=== PATIENT | female | born 1970 | race Caucasian/White ===

== ENCOUNTER 2019-11-25 16:56 | Inpatient (IN) ==
[2019-11-25] MEDS ORDERED: 0.9 % Sodium Chloride 1,000 ML IVC ONE (18:40)
[2019-11-25 19:35] LABS: Basophils % 0.4 %; Eosinophils # 0.4 K/mcL (0.0-0.6); Eosinophils % 6.4 %; Hematocrit 37.4 % (35.3-44.9); Hemoglobin 12.1 g/dL (11.5-15.4); Immature Granulocytes % 0.3 % (0-4); Lymphocytes # 1.5 K/mcL (0.6-4.6); Lymphocytes % 22.9 %; Mean Corpuscular HGB Conc 32.4 g/dL (31.6-35.5); Mean Corpuscular Hemoglobin 30.7 pg (28.0-33.3); Mean Corpuscular Volume 94.9 fL (83.0-100.0); Mean Platelet Volume 9.7 fL (9.4-12.4); Monocytes # 0.3 K/mcL (0.0-1.3); Monocytes % 4.6 %; Neutrophils # 4.4 K/mcL (1.6-8.9); Platelet Count 247 K/mcL (140-400); Red Blood Count 3.94 M/mcL (3.82-4.97); Red Cell Distribution Width 13.2 % (11.5-14.5); Segmented Neutrophils % 65.4 %; White Blood Count 6.7 K/mcL (4.3-11.1)
[2019-11-25] MEDS ORDERED: cefTRIAXone 2,000 MG in 0.9 % Sodium Chloride Mini Bag 100 ML IVPB ONE (19:46)
[2019-11-25] MEDS ORDERED: Vancomycin 1,750 MG/517.5 ML IV.SOLN IVPB ONE (19:47)
[2019-11-25] MEDS ORDERED: cefTRIAXone 2,000 MG in Water for inj. (sterile) 20 ML IVP ONE (20:05)
[2019-11-25 20:42] LABS: Alanine Aminotransferase 13 Units/L (7-52); Albumin 3.8 g/dL (3.5-5.7); Albumin/Globulin Ratio 1.3 (1.1-2.2); Alkaline Phosphatase 48 Units/L (34-104); Aspartate Amino Transferase 17 Units/L (13-39); BUN/Creatinine Ratio 20 (6-26); Bilirubin,Total 0.4 mg/dL (0.3-1.0); Blood Urea Nitrogen 14 mg/dL (6-20); Calcium 8.7 mg/dL (8.6-10.3); Carbon Dioxide 28 mEq/L (23-29); Chloride 104 mEq/L (98-107); Glucose 102 mg/dL (70-105); Osmolality,Calculated 287 (280-300); Sodium 138 mEq/L (136-145); Total Protein 6.8 g/dL (6.4-8.9); eGFR For African Americans > 60 (> 60); eGFR For Non-African Americans > 60 (> 60)
[2019-11-25] MEDS ORDERED: Naloxone 0.4 MG/ML INJ IVP PRN (22:12)
[2019-11-25] MEDS ORDERED: Mag Hydrox/Al Hydrox/Simeth 30 ML UDC PO PRN (22:12)
[2019-11-25] MEDS ORDERED: Ibuprofen 600 MG TABLET PO PRN (22:12)
[2019-11-25] MEDS ORDERED: *HR* Promethazine 25 MG/ML VIAL IVP PRN (22:12)
[2019-11-25] MEDS ORDERED: traZODone 50 MG TABLET PO PRN (22:15)
[2019-11-25] MEDS ORDERED: *HR* LORazepam 0.5 MG TABLET PO ONE (22:15)
[2019-11-25] MEDS ORDERED: 0.9 % Sodium Chloride 1,000 ML IVC SCH (22:15)
[2019-11-25 22:26] LABS: C-Reactive Protein 23 mg/L (Less than 10)
[2019-11-26] MEDS: Piperacillin/Tazobactam 3.375 GM in 0.9 % Sodium Chloride Mini Bag 100 ML IVPB SCH ×3 (00:42→15:19)
[2019-11-26] MEDS: *HR* Heparin 5,000 UNIT/ML VIAL SQ SCH ×3 (00:43→22:08)
[2019-11-26 07:04] LABS: Basophils % 0.7 %; Eosinophils # 0.4 K/mcL (0.0-0.6); Eosinophils % 7.2 %; Hemoglobin 11.9 g/dL (11.5-15.4); Immature Granulocytes % 0.2 % (0-4); Lymphocytes # 1.6 K/mcL (0.6-4.6); Mean Corpuscular HGB Conc 32.2 g/dL (31.6-35.5); Mean Corpuscular Hemoglobin 30.7 pg (28.0-33.3); Mean Corpuscular Volume 95.4 fL (83.0-100.0); Mean Platelet Volume 9.2 fL (9.4-12.4); Monocytes # 0.3 K/mcL (0.0-1.3); Monocytes % 6.1 %; Neutrophils # 3.1 K/mcL (1.6-8.9); Platelet Count 206 K/mcL (140-400); Red Blood Count 3.88 M/mcL (3.82-4.97); Red Cell Distribution Width 13.2 % (11.5-14.5); Segmented Neutrophils % 56.8 %; White Blood Count 5.4 K/mcL (4.3-11.1)
[2019-11-26 07:25] LABS: BUN/Creatinine Ratio 20 (6-26); Blood Urea Nitrogen 12 mg/dL (6-20); Calcium 8.5 mg/dL (8.6-10.3); Carbon Dioxide 28 mEq/L (23-29); Chloride 108 mEq/L (98-107); Glucose 98 mg/dL (70-105); Magnesium 1.8 mg/dL (1.6-2.6); Osmolality,Calculated 290 (280-300); Potassium 3.6 mEq/L (3.5-5.1); Sodium 140 mEq/L (136-145); eGFR For African Americans > 60 (> 60); eGFR For Non-African Americans > 60 (> 60)
[2019-11-26] MEDS: Nicotine 2 MG GUM BC SCH ×6 (07:40→22:06)
[2019-11-26] MEDS: Gabapentin 400 MG CAPSULE PO SCH ×3 (07:43→22:06)
[2019-11-26] MEDS: Cyanocobalamin (B-12) 1,000 MCG TABLET PO SCH (07:43)
[2019-11-26] MEDS ORDERED: (Buprenorphine Hcl/Naloxone Hcl [Buprenorphin-Naloxon SL SCH (09:00)
[2019-11-26] MEDS ORDERED: Vancomycin 1,750 MG in 0.9 % Sodium Chloride 250 ML IVPB SCH (09:00)
[2019-11-26] MEDS: Vancomycin 1,750 MG/517.5 ML IV.SOLN IVPB SCH ×2 (09:41→22:06)
[2019-11-26] MEDS ORDERED: Ketorolac 30 MG/ML VIAL IVP ONE (11:32)
[2019-11-26] MEDS: BUPRENORPHINE HCL SL SCH ×2 (12:33→22:07)
[2019-11-26] MEDS: NALOXONE HCL SL SCH ×2 (12:33→22:07)
[2019-11-26] MEDS: Ketorolac 30 MG/ML VIAL IVP SCH (18:41)
[2019-11-27] MEDS: Ketorolac 30 MG/ML VIAL IVP SCH ×3 (00:47→12:19)
[2019-11-27] MEDS: Piperacillin/Tazobactam 3.375 GM in 0.9 % Sodium Chloride Mini Bag 100 ML IVPB SCH ×2 (00:47→12:14)
[2019-11-27 05:31] LABS: Basophils % 0.5 %; Eosinophils # 0.3 K/mcL (0.0-0.6); Eosinophils % 4.8 %; Hematocrit 32.2 % (35.3-44.9); Hemoglobin 10.2 g/dL (11.5-15.4); Immature Granulocytes % 0.2 % (0-4); Lymphocytes # 1.9 K/mcL (0.6-4.6); Lymphocytes % 33.2 %; Mean Corpuscular HGB Conc 31.7 g/dL (31.6-35.5); Mean Corpuscular Hemoglobin 30.9 pg (28.0-33.3); Mean Corpuscular Volume 97.6 fL (83.0-100.0); Mean Platelet Volume 9.9 fL (9.4-12.4); Monocytes # 0.4 K/mcL (0.0-1.3); Monocytes % 6.4 %; Neutrophils # 3.1 K/mcL (1.6-8.9); Platelet Count 203 K/mcL (140-400); Red Cell Distribution Width 13.3 % (11.5-14.5); Segmented Neutrophils % 54.9 %; White Blood Count 5.6 K/mcL (4.3-11.1)
[2019-11-27 05:45] LABS: BUN/Creatinine Ratio 24 (6-26); Blood Urea Nitrogen 16 mg/dL (6-20); Calcium 8.1 mg/dL (8.6-10.3); Carbon Dioxide 27 mEq/L (23-29); Chloride 109 mEq/L (98-107); Glucose 123 mg/dL (70-105); Osmolality,Calculated 291 (280-300); Potassium 3.5 mEq/L (3.5-5.1); Sodium 139 mEq/L (136-145); eGFR For African Americans > 60 (> 60); eGFR For Non-African Americans > 60 (> 60)
[2019-11-27] MEDS: Nicotine 2 MG GUM BC SCH ×5 (07:32→21:07)
[2019-11-27] MEDS: Cyanocobalamin (B-12) 1,000 MCG TABLET PO SCH ×2 (10:03→11:04)
[2019-11-27] MEDS: Gabapentin 400 MG CAPSULE PO SCH ×3 (10:03→21:07)
[2019-11-27] MEDS ORDERED: Vancomycin 1,750 MG/517.5 ML IV.SOLN IVPB SCH (12:00)
[2019-11-27] MEDS: *HR* Heparin 5,000 UNIT/ML VIAL SQ SCH (12:15)
[2019-11-27] MEDS: NALOXONE HCL SL SCH ×2 (12:20→21:07)
[2019-11-27] MEDS: BUPRENORPHINE HCL SL SCH ×2 (12:20→21:07)
[2019-11-27] MEDS ORDERED: *HR* LORazepam 0.5 MG TABLET PO PRN (13:08)
[2019-11-27] MEDS ORDERED: *HR* Heparin 5,000 UNIT/ML VIAL IVP PRN ×2 (15:01)
[2019-11-27] MEDS ORDERED: *HR* Heparin 5,000 UNIT/ML VIAL IVP ONE (15:01)
[2019-11-27 16:12] LABS: Hematocrit 36.4 % (35.3-44.9); Mean Corpuscular HGB Conc 32.4 g/dL (31.6-35.5); Mean Corpuscular Hemoglobin 30.5 pg (28.0-33.3); Mean Corpuscular Volume 94.1 fL (83.0-100.0); Mean Platelet Volume 10.1 fL (9.4-12.4); Platelet Count 253 K/mcL (140-400); Red Blood Count 3.87 M/mcL (3.82-4.97); Red Cell Distribution Width 13.5 % (11.5-14.5)
[2019-11-27 16:18] LABS: White Blood Count 8.5 K/mcL (4.3-11.1)
[2019-11-27 16:19] LABS: Hemoglobin 11.8 g/dL (11.5-15.4)
[2019-11-27 17:25] LABS: Heparin anti-factor XA UFH < 0.04 IU/mL (0.30-0.70); Prothrombin Time 11.4 Seconds (9.4-12.1)
[2019-11-27] MEDS: Heparin 25,000 UNIT/250 ML D5W 25,000 UNIT/250 ML IV.SOLN IVC SCH (17:26)
[2019-11-27] MEDS: Vancomycin 1,750 MG/517.5 ML IV.SOLN IVPB SCH (19:13)
[2019-11-28 01:48] LABS: Basophils % 0.5 %; Eosinophils # 0.4 K/mcL (0.0-0.6); Eosinophils % 5.8 %; Immature Granulocytes % 0.1 % (0-4); Lymphocytes # 2.5 K/mcL (0.6-4.6); Lymphocytes % 33.7 %; Mean Corpuscular HGB Conc 31.3 g/dL (31.6-35.5); Mean Corpuscular Hemoglobin 29.9 pg (28.0-33.3); Mean Corpuscular Volume 95.5 fL (83.0-100.0); Mean Platelet Volume 9.5 fL (9.4-12.4); Monocytes # 0.4 K/mcL (0.0-1.3); Monocytes % 4.7 %; Neutrophils # 4.1 K/mcL (1.6-8.9); Platelet Count 226 K/mcL (140-400); Red Blood Count 3.35 M/mcL (3.82-4.97); Red Cell Distribution Width 13.3 % (11.5-14.5); Segmented Neutrophils % 55.2 %; White Blood Count 7.5 K/mcL (4.3-11.1)
[2019-11-28 02:05] LABS: Alanine Aminotransferase 14 Units/L (7-52); Albumin 3.5 g/dL (3.5-5.7); Albumin/Globulin Ratio 1.4 (1.1-2.2); Alkaline Phosphatase 42 Units/L (34-104); Aspartate Amino Transferase 13 Units/L (13-39); BUN/Creatinine Ratio 28 (6-26); Bilirubin,Total 0.2 mg/dL (0.3-1.0); Blood Urea Nitrogen 18 mg/dL (6-20); Calcium 8.1 mg/dL (8.6-10.3); Carbon Dioxide 27 mEq/L (23-29); Chloride 108 mEq/L (98-107); Globulin 2.5 g/dL (2.4-3.5); Glucose 107 mg/dL (70-105); Osmolality,Calculated 290 (280-300); Potassium 3.7 mEq/L (3.5-5.1); Sodium 139 mEq/L (136-145); eGFR For African Americans > 60 (> 60); eGFR For Non-African Americans > 60 (> 60)
[2019-11-28] MEDS: Nicotine 2 MG GUM BC SCH ×5 (05:34→21:03)
[2019-11-28] MEDS ORDERED: Vancomycin 1,000 MG, 0.9 % Sodium Chloride 1,000 ML IR ONE ×2 (06:00→15:16)
[2019-11-28] MEDS: Cyanocobalamin (B-12) 1,000 MCG TABLET PO SCH (07:35)
[2019-11-28] MEDS: Gabapentin 400 MG CAPSULE PO SCH ×3 (07:40→21:03)
[2019-11-28] MEDS: Heparin 25,000 UNIT/250 ML D5W 25,000 UNIT/250 ML IV.SOLN IVC SCH ×3 (07:45→22:55)
[2019-11-28] MEDS: BUPRENORPHINE HCL SL SCH ×2 (12:13→21:58)
[2019-11-28] MEDS: NALOXONE HCL SL SCH ×2 (12:13→21:58)
[2019-11-28] MEDS ORDERED: Ondansetron 4 MG/2 ML VIAL ONE (12:47)
[2019-11-28] MEDS ORDERED: *HR* FentaNYL (PF) 100 MCG/2 ML VIAL ONE ×2 (12:47→14:46)
[2019-11-28] MEDS ORDERED: Dexamethasone 4 MG/ML VIAL ONE (12:47)
[2019-11-28] MEDS ORDERED: *HR* Succinylcholine 200 MG/10 ML VIAL IVP ONE (12:47)
[2019-11-28] MEDS ORDERED: *HR* Propofol 200 MG/20 ML VIAL IVP ONE (12:47)
[2019-11-28] MEDS ORDERED: Lidocaine -MPF 2% 2 ML VIAL ONE (12:47)
[2019-11-28] MEDS ORDERED: Lidocaine 1% 20 ML MDV ONE (13:41)
[2019-11-28] MEDS ORDERED: Bupivacaine/EPI 1:200k 0.25%PF 30 ML VIAL ONE (13:41)
[2019-11-28] MEDS ORDERED: Mag Hydrox/Al Hydrox/Simeth 30 ML UDC PO PRN (15:16)
[2019-11-28] MEDS ORDERED: Naloxone 0.4 MG/ML INJ IVP PRN (15:16)
[2019-11-28] MEDS ORDERED: *HR* Heparin 5,000 UNIT/ML VIAL IVP PRN ×2 (15:16)
[2019-11-28] MEDS ORDERED: *HR* Promethazine 25 MG/ML VIAL IVP PRN (15:16)
[2019-11-28] MEDS ORDERED: Ibuprofen 600 MG TABLET PO PRN (15:16)
[2019-11-28] MEDS: hydrOXYzine pamoate 25 MG CAPSULE PO PRN (15:31)
[2019-11-28] MEDS ORDERED: Patient Taking Own Medication 1 EACH PO SCH (21:00)
[2019-11-28] MEDS ORDERED: BUPRENORPHINE HCL SL SCH (21:00)
[2019-11-28] MEDS ORDERED: NALOXONE HCL SL SCH (21:00)
[2019-11-28] MEDS: traZODone 50 MG TABLET PO PRN (21:58)
[2019-11-29 03:46] LABS: Basophils % 0.6 %; Eosinophils # 0.4 K/mcL (0.0-0.6); Eosinophils % 6.5 %; Hematocrit 31.4 % (35.3-44.9); Hemoglobin 10.3 g/dL (11.5-15.4); Immature Granulocytes % 0.3 % (0-4); Lymphocytes # 2.3 K/mcL (0.6-4.6); Lymphocytes % 34.1 %; Mean Corpuscular HGB Conc 32.8 g/dL (31.6-35.5); Mean Corpuscular Hemoglobin 31.8 pg (28.0-33.3); Mean Corpuscular Volume 96.9 fL (83.0-100.0); Mean Platelet Volume 9.4 fL (9.4-12.4); Monocytes # 0.4 K/mcL (0.0-1.3); Monocytes % 5.5 %; Neutrophils # 3.6 K/mcL (1.6-8.9); Platelet Count 203 K/mcL (140-400); Red Blood Count 3.24 M/mcL (3.82-4.97); Red Cell Distribution Width 13.5 % (11.5-14.5); White Blood Count 6.8 K/mcL (4.3-11.1)
[2019-11-29 04:07] LABS: BUN/Creatinine Ratio 22 (6-26); Blood Urea Nitrogen 15 mg/dL (6-20); Carbon Dioxide 28 mEq/L (23-29); Chloride 109 mEq/L (98-107); Glucose 114 mg/dL (70-105); Osmolality,Calculated 296 (280-300); Potassium 3.5 mEq/L (3.5-5.1); Sodium 142 mEq/L (136-145); eGFR For African Americans > 60 (> 60); eGFR For Non-African Americans > 60 (> 60)
[2019-11-29] MEDS: Nicotine 2 MG GUM BC SCH ×6 (05:15→21:16)
[2019-11-29] MEDS: Gabapentin 400 MG CAPSULE PO SCH ×3 (10:10→21:38)
[2019-11-29] MEDS: BUPRENORPHINE HCL SL SCH ×2 (10:11→21:38)
[2019-11-29] MEDS: hydrOXYzine pamoate 25 MG CAPSULE PO PRN (10:11)
[2019-11-29] MEDS: NALOXONE HCL SL SCH ×2 (10:11→21:38)
[2019-11-29] MEDS: Cyanocobalamin (B-12) 1,000 MCG TABLET PO SCH (10:12)
[2019-11-29] MEDS ORDERED: Vancomycin 1,750 MG in 0.9 % Sodium Chloride 250 ML IVPB SCH (13:00)
[2019-11-29] MEDS: *HR* Enoxaparin 120 MG/0.8 ML SYRINGE SQ SCH (13:48)
[2019-11-29] MEDS: *HR* LORazepam 0.5 MG TABLET PO PRN (13:49)
[2019-11-29] MEDS: Vancomycin 1,750 MG/517.5 ML IV.SOLN IVPB SCH (13:57)
[2019-11-29] MEDS ORDERED: Anticoagulation Consult 1 Each MC ONE (17:13)
[2019-11-29] MEDS ORDERED: *HR* Warfarin 5 MG TABLET PO ONE (18:00)
[2019-11-29] MEDS ORDERED: Warfarin perPT PO PRN (18:00)
[2019-11-29] MEDS: traZODone 50 MG TABLET PO PRN (21:38)
[2019-11-30] MEDS: Vancomycin 1,750 MG/517.5 ML IV.SOLN IVPB SCH ×2 (00:19→14:02)
[2019-11-30 03:46] LABS: Basophils % 0.3 %; Eosinophils # 0.4 K/mcL (0.0-0.6); Eosinophils % 6.1 %; Hematocrit 31.3 % (35.3-44.9); Immature Granulocytes % 0.2 % (0-4); Lymphocytes # 1.9 K/mcL (0.6-4.6); Mean Corpuscular HGB Conc 31.9 g/dL (31.6-35.5); Mean Corpuscular Hemoglobin 30.5 pg (28.0-33.3); Mean Corpuscular Volume 95.4 fL (83.0-100.0); Mean Platelet Volume 9.3 fL (9.4-12.4); Monocytes # 0.4 K/mcL (0.0-1.3); Monocytes % 6.1 %; Neutrophils # 3.3 K/mcL (1.6-8.9); Platelet Count 196 K/mcL (140-400); Red Blood Count 3.28 M/mcL (3.82-4.97); Red Cell Distribution Width 13.3 % (11.5-14.5); Segmented Neutrophils % 55.3 %; White Blood Count 5.9 K/mcL (4.3-11.1)
[2019-11-30 03:50] LABS: INR 1.2; Prothrombin Time 13.5 Seconds (9.4-12.1)
[2019-11-30 04:06] LABS: BUN/Creatinine Ratio 24 (6-26); Blood Urea Nitrogen 15 mg/dL (6-20); Carbon Dioxide 27 mEq/L (23-29); Chloride 108 mEq/L (98-107); Glucose 104 mg/dL (70-105); Osmolality,Calculated 289 (280-300); Potassium 3.5 mEq/L (3.5-5.1); Sodium 139 mEq/L (136-145); eGFR For African Americans > 60 (> 60); eGFR For Non-African Americans > 60 (> 60)
[2019-11-30] MEDS: *HR* Enoxaparin 120 MG/0.8 ML SYRINGE SQ SCH ×2 (05:20→17:26)
[2019-11-30] MEDS: Nicotine 2 MG GUM BC SCH ×7 (05:21→20:37)
[2019-11-30] MEDS: Gabapentin 400 MG CAPSULE PO SCH ×4 (08:02→20:36)
[2019-11-30] MEDS: BUPRENORPHINE HCL SL SCH ×2 (09:27→20:36)
[2019-11-30] MEDS: NALOXONE HCL SL SCH ×2 (09:27→20:36)
[2019-11-30] MEDS: Cyanocobalamin (B-12) 1,000 MCG TABLET PO SCH (09:29)
[2019-11-30] MEDS ORDERED: *HR* Warfarin 5 MG TABLET PO ONE (18:00)
[2019-11-30] MEDS: traZODone 50 MG TABLET PO PRN (20:36)
[2019-12-01 00:27] LABS: INR 1.2
[2019-12-01 00:42] LABS: BUN/Creatinine Ratio 25 (6-26); Blood Urea Nitrogen 19 mg/dL (6-20); Carbon Dioxide 27 mEq/L (23-29); Chloride 107 mEq/L (98-107); Glucose 102 mg/dL (70-105); Osmolality,Calculated 290 (280-300); Sodium 139 mEq/L (136-145); eGFR For African Americans > 60 (> 60); eGFR For Non-African Americans > 60 (> 60)
[2019-12-01 00:45] LABS: Basophils % 0.5 %; Eosinophils # 0.3 K/mcL (0.0-0.6); Eosinophils % 4.8 %; Hematocrit 29.7 % (35.3-44.9); Hemoglobin 9.7 g/dL (11.5-15.4); Immature Granulocytes % 0.2 % (0-4); Lymphocytes # 1.9 K/mcL (0.6-4.6); Mean Corpuscular HGB Conc 32.7 g/dL (31.6-35.5); Mean Corpuscular Hemoglobin 31.5 pg (28.0-33.3); Mean Corpuscular Volume 96.4 fL (83.0-100.0); Mean Platelet Volume 9.4 fL (9.4-12.4); Monocytes # 0.4 K/mcL (0.0-1.3); Monocytes % 5.9 %; Neutrophils # 3.4 K/mcL (1.6-8.9); Platelet Count 198 K/mcL (140-400); Red Blood Count 3.08 M/mcL (3.82-4.97); Red Cell Distribution Width 13.3 % (11.5-14.5); Segmented Neutrophils % 56.6 %; White Blood Count 6.1 K/mcL (4.3-11.1)
[2019-12-01] MEDS: Vancomycin 1,750 MG/517.5 ML IV.SOLN IVPB SCH ×2 (01:00→14:42)
[2019-12-01] MEDS: Nicotine 2 MG GUM BC SCH ×5 (05:06→22:11)
[2019-12-01] MEDS: *HR* Enoxaparin 120 MG/0.8 ML SYRINGE SQ SCH ×2 (05:06→16:52)
[2019-12-01] MEDS: NALOXONE HCL SL SCH ×2 (10:18→21:00)
[2019-12-01] MEDS: BUPRENORPHINE HCL SL SCH ×2 (10:18→21:00)
[2019-12-01] MEDS: Gabapentin 400 MG CAPSULE PO SCH ×3 (10:19→20:34)
[2019-12-01] MEDS: Cyanocobalamin (B-12) 1,000 MCG TABLET PO SCH (10:20)
[2019-12-01] MEDS ORDERED: *HR* Warfarin 7.5 MG TABLET PO ONE ×2 (18:00)
[2019-12-01] MEDS: Cefepime HCl 2,000 MG in Water for inj. (sterile) 20 ML IVP SCH (18:14)
[2019-12-01] MEDS: *HR* LORazepam 0.5 MG TABLET PO PRN (21:00)
[2019-12-02] MEDS: Vancomycin 1,750 MG/517.5 ML IV.SOLN IVPB SCH ×2 (01:01→12:50)
[2019-12-02] MEDS: traZODone 50 MG TABLET PO PRN (01:25)
[2019-12-02] MEDS: hydrOXYzine pamoate 25 MG CAPSULE PO PRN (01:25)
[2019-12-02 03:41] LABS: Basophils % 0.3 %; Eosinophils # 0.3 K/mcL (0.0-0.6); Eosinophils % 4.9 %; Hematocrit 29.4 % (35.3-44.9); Hemoglobin 9.7 g/dL (11.5-15.4); Immature Granulocytes % 0.3 % (0-4); Lymphocytes # 2.1 K/mcL (0.6-4.6); Lymphocytes % 32.4 %; Mean Corpuscular Hemoglobin 31.5 pg (28.0-33.3); Mean Corpuscular Volume 95.5 fL (83.0-100.0); Mean Platelet Volume 9.5 fL (9.4-12.4); Monocytes # 0.5 K/mcL (0.0-1.3); Monocytes % 7.6 %; Neutrophils # 3.5 K/mcL (1.6-8.9); Platelet Count 192 K/mcL (140-400); Red Blood Count 3.08 M/mcL (3.82-4.97); Red Cell Distribution Width 13.4 % (11.5-14.5); Segmented Neutrophils % 54.5 %; White Blood Count 6.4 K/mcL (4.3-11.1)
[2019-12-02 03:47] LABS: INR 1.2; Prothrombin Time 13.6 Seconds (9.4-12.1)
[2019-12-02 03:58] LABS: BUN/Creatinine Ratio 27 (6-26); Blood Urea Nitrogen 21 mg/dL (6-20); Calcium 7.9 mg/dL (8.6-10.3); Carbon Dioxide 26 mEq/L (23-29); Chloride 105 mEq/L (98-107); Glucose 120 mg/dL (70-105); Osmolality,Calculated 290 (280-300); Potassium 3.9 mEq/L (3.5-5.1); Sodium 138 mEq/L (136-145); eGFR For African Americans > 60 (> 60); eGFR For Non-African Americans > 60 (> 60)
[2019-12-02] MEDS: Nicotine 2 MG GUM BC SCH ×4 (06:14→09:21)
[2019-12-02] MEDS: *HR* Enoxaparin 120 MG/0.8 ML SYRINGE SQ SCH (06:18)
[2019-12-02] MEDS: Cefepime HCl 2,000 MG in Water for inj. (sterile) 20 ML IVP SCH (06:19)
[2019-12-02] MEDS: BUPRENORPHINE HCL SL SCH (09:17)
[2019-12-02] MEDS: Gabapentin 400 MG CAPSULE PO SCH (09:17)
[2019-12-02] MEDS: Cyanocobalamin (B-12) 1,000 MCG TABLET PO SCH (09:17)
[2019-12-02] MEDS: NALOXONE HCL SL SCH (09:17)
[2019-12-02 16:00] VITALS: BP 134/78
[2019-12-02] MEDS ORDERED: Aminoglycoside Consult 1 EACH MC ONE (17:13)
[2019-12-02] MEDS ORDERED: *HR* Warfarin 10 MG TABLET PO ONE (18:00)
== END 2019-12-02 17:14 | disposition left against medical advice (07) | DRG 464 ==
LOC: EMEROOARM 16:56 → 3NENU 16:56 → SUATTDRO 21:20 → 3NENU 22:25
PROVIDERS: ADMIT Internal Medicine; ATTEND Internal Medicine